=== PATIENT | female | born 1980 | race Caucasian/White ===

== ENCOUNTER 2016-04-07 09:03 | Inpatient (IN) | payer MEDICAID ==
[~2016-04-07] VITALS: Ht 162.6 cm; Wt 68.2 kg
[2016-04-07] MEDS ORDERED: SODIUM CHLORIDE 0.9% 1,000 ML IV ONE (09:27)
[2016-04-07 09:51] LABS: Basophils # (auto) 0 uL; Basophils % (auto) 0.2 % (0.0-2.0); Eosinophils # (auto) 0.1 uL; Eosinophils % (auto) 1.2 % (0.0-7.0); Hematocrit 47.3 % (36.0-46.0); Hemoglobin 15.8 g/dL (12.2-16.2); Lymphocytes # (auto) 0.8 uL; Mean Corpuscular Hemoglobin 29.1 pg (28.0-32.0); Mean Corpuscular Hgb Conc. 33.4 g/dL (32.0-36.0); Mean Corpuscular Volume 87.2 fL (80.0-100.0); Mean Platelet Volume 9.8 fL (7.4-10.4); Monocytes # (auto) 0.4 uL; Monocytes % (auto) 3.1 % (0.0-12.0); Neutrophils % (auto) 88.5 % (37.0-80.0); Platelet Count (auto) 345 10^3/uL (140-450); Red Cell Distribution Width 13.7 % (11.6-16.0); White Blood Cell 11.3 10^3/uL (4.4-10.8)
[2016-04-07 10:06] LABS: Albumin 3.6 g/dL (3.4-5.0); BUN/Creatinine Ratio 19.4; Calcium 8.6 mg/dL (8.5-10.1); Potassium 3.6 mmol/L (3.5-5.1)
[2016-04-07 10:09] LABS: Bilirubin, Total 1.2 mg/dL (0.2-1.0); Total Protein 7.3 g/dL (6.4-8.2)
[2016-04-07] MEDS ORDERED: ONDANSETRON HCL 4 MG/2 ML VIAL IV PRN (12:30)
[2016-04-07] MEDS ORDERED: TEMAZEPAM 15 MG CAP PO PRN (12:30)
[2016-04-07] MEDS ORDERED: cefTRIAXone 1GM/50ML D5W 50 ML IV ONE (12:30)
[2016-04-07] MEDS ORDERED: HYDROcodone-ACET 5/325MG TAB PO PRN (12:30)
[2016-04-07] MEDS ORDERED: MORPHINE SULF INJ 2 MG/ML SYRINGE 1ML IV PRN ×2 (12:30)
[2016-04-07] MEDS ORDERED: NITROGLYCERIN 0.4 MG SL TAB SL PRN (12:30)
[2016-04-07 12:55] LABS: Urine Bilirubin Negative (Negative); Urine Color Yellow (Yellow); Urine Glucose Normal (Normal); Urine Nitrite Negative (Negative); Urine RBC <1 /hpf (0 - 4); Urine Squamous Epithelial Cell FEW /hpf (<5); Urine Urobilinogen Normal (Negative); Urine pH 5.5 (5.0-8.0)
[2016-04-07] MEDS: SODIUM CHLORIDE 0.9% 1,000 ML IV SCH ×2 (13:00→20:19)
[2016-04-07 13:06] LABS: Urine Blood 1+ /uL (Negative); Urine Ketone 2+ (Negative)
[2016-04-07] MEDS: FAMOTIDINE 20 MG TAB PO SCH ×2 (13:09→22:06)
[2016-04-07] MEDS: metroNIDAZOLE 500MG/100ML 100 ML IV SCH ×2 (13:09→22:06)
[2016-04-07 16:45] VITALS: BP 120/72
[2016-04-07 22:00] VITALS: BP 126/77
[2016-04-08] MEDS ORDERED: ALPR0.5T PO (02:26)
[2016-04-08] MEDS ORDERED: ESCI10TA53 PO (02:26)
[2016-04-08] MEDS: ACETAMINOPHEN 325 MG TAB PO PRN ×3 (04:23→21:24)
[2016-04-08] MEDS: SODIUM CHLORIDE 0.9% 1,000 ML IV SCH ×3 (05:02→20:42)
[2016-04-08 05:20] LABS: Basophils # (auto) 0 uL; Basophils % (auto) 0.4 % (0.0-2.0); Eosinophils # (auto) 0.1 uL; Eosinophils % (auto) 1.8 % (0.0-7.0); Hematocrit 39.1 % (36.0-46.0); Lymphocytes # (auto) 2.2 uL; Lymphocytes % (auto) 36.6 % (10.0-50.0); Mean Corpuscular Hemoglobin 29.4 pg (28.0-32.0); Mean Corpuscular Hgb Conc. 33.2 g/dL (32.0-36.0); Mean Corpuscular Volume 88.6 fL (80.0-100.0); Mean Platelet Volume 9.5 fL (7.4-10.4); Monocytes # (auto) 0.5 uL; Monocytes % (auto) 8.4 % (0.0-12.0); Neutrophils # (auto) 3.2 uL; Neutrophils % (auto) 52.8 % (37.0-80.0); Platelet Count (auto) 274 10^3/uL (140-450); Red Cell Distribution Width 13.7 % (11.6-16.0)
[2016-04-08 05:30] VITALS: BP 108/73
[2016-04-08] MEDS: metroNIDAZOLE 500MG/100ML 100 ML IV SCH ×3 (05:33→21:30)
[2016-04-08 05:36] LABS: Albumin 2.8 g/dL (3.4-5.0); BUN/Creatinine Ratio 9.1; Bilirubin, Total 0.9 mg/dL (0.2-1.0); Calcium 7.7 mg/dL (8.5-10.1); Potassium 3.5 mmol/L (3.5-5.1); Total Protein 5.5 g/dL (6.4-8.2)
[2016-04-08 08:00] VITALS: BP 104/56
[2016-04-08] MEDS ORDERED: cefTRIAXone 1GM/50ML D5W 50 ML IV SCH (09:00)
[2016-04-08] MEDS ORDERED: MULTIPLE VITAMIN TAB PO SCH (10:00)
[2016-04-08] MEDS: FAMOTIDINE 20 MG TAB PO SCH ×2 (10:43→21:31)
[2016-04-08 13:00] VITALS: BP 109/66
[2016-04-08 17:08] VITALS: BP 98/68
[2016-04-08 22:00] VITALS: BP 135/96
[2016-04-09 05:30] VITALS: BP 101/66
[2016-04-09] MEDS: SODIUM CHLORIDE 0.9% 1,000 ML IV SCH (05:32)
[2016-04-09] MEDS: metroNIDAZOLE 500MG/100ML 100 ML IV SCH (05:32)
[2016-04-09] MEDS: ACETAMINOPHEN 325 MG TAB PO PRN (08:26)
[2016-04-09 09:00] VITALS: BP 109/72
[2016-04-09 09:14] VITALS: BP 109/72
== END 2016-04-09 09:50 | disposition home or self-care (01) | DRG 720 ==
LOC: EDUNIT# 09:03 → ER 09:13 → TELE 09:14 → TELE-E-ADS 17:06 → TELE-WESTW 18:33
PROVIDERS: ADMIT Internal Medicine; ATTEND Hospitalist
DX: A41.9 Sepsis, unspecified organism (principal); F32.9 Major depressive disorder, single episode, unspecified; F41.9 Anxiety disorder, unspecified; E86.0 Dehydration; K52.9 Noninfective gastroenteritis and colitis, unspecified; N18.2 Chronic kidney disease, stage 2 (mild); Z82.49 Family history of ischemic heart disease and other diseases of the circulatory system
CPT/HCPCS: 36415; 74176; 80053; 81001; 81025; 83690; 85025; 87040; 87045; 87493; 87899; 96361; 96365; J0696; J3490

== ENCOUNTER 2017-11-09 13:47 | Emergency (ER) | payer MEDICAID ==
[~2017-11-09] VITALS: Ht 165.1 cm; Wt 81.6 kg
[~2017-11-09 13:47] MED LIST: ALPR0.5T PO; ESCI10TA53 PO
[2017-11-09 15:00] LABS: Urine Bacteria NONE SEEN /hpf (None Seen); Urine Blood Negative /uL (Negative); Urine Specific Gravity 1.023 (1.001-1.035); Urine WBC <1 /hpf (0 - 5)
[2017-11-09 15:07] LABS: Basophils # (auto) 0.1 uL; Basophils % (auto) 0.5 % (0.0-2.0); Eosinophils # (auto) 0.2 uL; Hemoglobin 14.2 g/dL (12.2-16.2); Lymphocytes # (auto) 2.3 uL; Lymphocytes % (auto) 21.6 % (10.0-50.0); Mean Corpuscular Hemoglobin 30.5 pg (28.0-32.0); Mean Corpuscular Hgb Conc. 34.5 g/dL (32.0-36.0); Mean Corpuscular Volume 88.4 fL (80.0-100.0); Monocytes # (auto) 0.6 uL; Monocytes % (auto) 5.4 % (0.0-12.0); Neutrophils # (auto) 7.6 uL; Neutrophils % (auto) 70.5 % (37.0-80.0); Nucleated Red Blood Cells % 0.1 %; Platelet Count (auto) 280 10^3/uL (140-450); Red Blood Cells 4.64 10^6/uL (4.0-5.20); Red Cell Distribution Width 13.4 % (11.8-14.3); White Blood Cell 10.8 10^3/uL (4.4-10.8)
[2017-11-09 15:36] LABS: Alanine Aminotransferase 20 U/L (13-56); Albumin 3.5 g/dL (3.4-5.0); Alkaline Phosphatase 51 U/L (45-117); Anion Gap 8 (5-15); Aspartate Aminotransferase 13 U/L (15-37); BUN/Creatinine Ratio 20.7; Bilirubin, Total 0.9 mg/dL (0.2-1.0); Blood Urea Nitrogen 18 mg/dL (7-18); Calcium 8.2 mg/dL (8.5-10.1); Carbon Dioxide 23 mmol/L (21-32); Chloride 107 mmol/L (98-107); GFR African American 93 mL/min; GFR Non-African American 77 mL/min; Glucose 117 mg/dL (74-106); Magnesium 2.4 mg/dL (1.6-2.6); Potassium 3.5 mmol/L (3.5-5.1); Sodium 138 mmol/L (136-145); Total Protein 7.1 g/dL (6.4-8.2)
[2017-11-09 16:15] VITALS: BP 126/83
== END 2017-11-09 16:18 | disposition home or self-care (01) ==
LOC: ER 13:47 → EDBD 13:47 → ER 16:18
DX: I34.1 Nonrheumatic mitral (valve) prolapse (principal); F41.9 Anxiety disorder, unspecified
CPT/HCPCS: 36415; 71046; 80053; 81001; 81025; 83735; 84484; 85025; 93005

== ENCOUNTER 2018-01-08 12:25 | Emergency (ER) | payer MEDICAID ==
[~2018-01-08] VITALS: Ht 162.6 cm; Wt 81.6 kg
[2018-01-08] MEDS ORDERED: LORazepam 0.5 MG TAB PO ONE (13:30)
[2018-01-08 13:43] LABS: Basophils # (auto) 0.1 uL; Basophils % (auto) 0.8 % (0.0-2.0); Eosinophils # (auto) 0.2 uL; Eosinophils % (auto) 2.1 % (0.0-7.0); Hematocrit 41.6 % (36.0-46.0); Hemoglobin 14.4 g/dL (12.2-16.2); Lymphocytes # (auto) 2.9 uL; Lymphocytes % (auto) 31.9 % (10.0-50.0); Mean Corpuscular Hemoglobin 30.4 pg (28.0-32.0); Mean Corpuscular Hgb Conc. 34.5 g/dL (32.0-36.0); Monocytes # (auto) 0.6 uL; Monocytes % (auto) 6.3 % (0.0-12.0); Neutrophils # (auto) 5.3 uL; Neutrophils % (auto) 58.9 % (37.0-80.0); Nucleated Red Blood Cells % 0.1 %; Platelet Count (auto) 337 10^3/uL (140-450); Red Blood Cells 4.73 10^6/uL (4.0-5.20); Red Cell Distribution Width 13.7 % (11.8-14.3)
[2018-01-08 13:55] LABS: Alanine Aminotransferase 21 U/L (13-56); Albumin 3.6 g/dL (3.4-5.0); Anion Gap 8 (5-15); Aspartate Aminotransferase 10 U/L (15-37); BUN/Creatinine Ratio 13.5; Blood Urea Nitrogen 12 mg/dL (7-18); Calcium 8.4 mg/dL (8.5-10.1); Carbon Dioxide 23 mmol/L (21-32); Chloride 108 mmol/L (98-107); GFR African American 91 mL/min; GFR Non-African American 75 mL/min; Glucose 113 mg/dL (74-106); Potassium 3.4 mmol/L (3.5-5.1); Sodium 139 mmol/L (136-145)
[2018-01-08 14:07] LABS: Alkaline Phosphatase 54 U/L (45-117); Total Protein 7.2 g/dL (6.4-8.2)
[2018-01-08] MEDS ORDERED: POTASSIUM EFFERVESENT TAB 25 MEQ PO ONE (14:15)
[2018-01-08 14:28] LABS: Urine Bacteria NONE SEEN /hpf (None Seen); Urine Blood Negative /uL (Negative); Urine Specific Gravity 1.001 (1.001-1.035); Urine WBC <1 /hpf (0 - 5)
[2018-01-08 14:51] VITALS: BP 134/82
== END 2018-01-08 14:52 | disposition home or self-care (01) ==
LOC: ER 12:25
DX: F41.9 Anxiety disorder, unspecified (principal)
CPT/HCPCS: 36415; 80053; 81001; 81025; 84484; 85025; 93005

== ENCOUNTER 2024-06-07 16:22 | Inpatient (IN) | payer MEDICAID ==
[~2024-06-07] VITALS: Ht 162.6 cm; Wt 69.5 kg
[~2024-06-07 16:22] MED LIST changes: -ESCI10TA53 PO; +ESCI1TAB36 PO
--- NOTE | 2024-06-07 16:45 | ED.PDOC ---
History of Present Illness HPI Comments This is a 43-year-old female who comes in with chief complaint of total body pain since last night at approximately 8:00 a.m.. The patient states that she has a history of multiple sclerosis. She states that the pain has been worsening and so now she can not get out of bed. EN route, the patient experienced some nausea and some vomiting. The patient was no other complaints at this time. She denies any fever, chills or dysuria. Chief Complaint: Body Pain Time Seen by MD: 16:26 Primary Care Provider: unknown Reviewed Notes: Nurses Notes, Sprinkler Fitter Apprentice Notes, Medications, Allergies (No allergies to medications) Allergies: Coded Allergies: NO KNOWN ALLERGIES (Unverified , 11/26/15) Home Meds Reported Medications Escitalopram Oxalate (ESCITALOPRAM OXALATE) 10 Mg Tab, 10 MG PO DAILY, TAB 04/08/16 Alprazolam (Xanax) 0.5 Mg Tb, 0.5 MG PO BID 04/08/16 Information Source: Patient, Emergency Med Personnel Mode of Arrival: EMS Severity: Moderate Timing: Days Duration: Since onset Prehospital treatment: None Associated signs and symptoms Associated vomiting with generalized body pain Past Medical History PAST MEDICAL HISTORY: Anxiety Past Medical History (Other): Multiple sclerosis, mitral valve prolapse Surgical History: Denies all surgeries ROLL EXAMINER History: No Pertinent ROLL EXAMINER History Family History Family History: No family hx of Cancer, No family hx of DM, No family hx of Heart kaylee Social History Smoker: Non-Smoker Alcohol: Denies ETOH Use Drugs: Denies Drug Use Lives In: Home Constitutional: reports: weakness; denies: chills, diaphoresis, fatigue, fever, malaise, sweats, others EENTM: denies: blurred vision, double vision, ear bleeding, ear discharge, ear drainage, ear pain, ear ringing, eye pain, eye redness, hearing loss, mouth pain, mouth swelling, nasal discharge, nose bleeding, nose congestion, nose pain, photophobia, tearing, throat pain, throat swelling, voice changes, others Respiratory: denies: cough, hemoptysis, orthopnea, SOB at rest, shortness of b reath, SOB with excertion, stridor, wheezing, others Cardiovascular: denies: chest pain, dizzy spells, diaphoresis, Dyspnea on exertion, edema, irregular heart beat, left arm pain, lightheadedness, palpitations, PND, syncope, others Gastrointestinal: denies: abdomen distended, abdominal pain, blood streaked bowels, constipated, diarrhea, dysphagia, difficulty swallowing, hematemesis, melena, nausea, poor appetite, poor fluid intake, rectal bleeding, rectal pain, vomiting, others Genitourinary: denies: abnormal vagina bleeding, burning, dyspareunia, dysuria, flank pain, frequency, hematuria, incontinence, pain, , vagina discharge, urgency, others Neurological: denies: dizziness, fainting, headache, left sided numbness, left sided weakness, numbness, paresthesia, pre-existing deficit, right sided numbness, right sided weakness, seizure, speech problems, tingling, tremors, weakness, others Musculoskeletal: reports: others (Total body pain); denies: back pain, gout, joint pain, joint swelling, muscle pain, muscle stiffness, neck pain Integumetry: denies: bruises, change in color, change in hair/nails, dryness, laceration, lesions, lumps, rash, wounds, others Allergic/Immunocompromised: denies: Difficulty Healing, Frequent Infections, Hives, Itching, others Hematologic/Lymphatic: denies: anemia, blood clots, easy bleeding, easy bruising, swollen glands, others Endocrine: denies: excessive hunger, excessive sweating, excessive thirst, excessive urination, flushing, intolerance to cold, intolerance to heat, unexplained weight gain, unexplained weight loss, others Psychiatric: denies: anxiety, bipolar disorder, depression, hopeless, panic disorder, schizophrenia, sleepless, suicidal, others Physical Exam General Appearance: Moderate Distress HEENT: Normal ENT Inspection, Pharynx Normal, TMs Normal Neck: Full Range of Motion, Non-Tender, Normal, Normal Inspection Respiratory: Chest Non-Tender, Lungs Clear, No Accessory Muscle Use, No Respiratory Distress, Normal Breath Sounds Cardiovascular: No Edema, No JVD, No Murmur, No Gallop, Normal Peripheral Pulses, Regular Rate/Rhythm Breast Exam: Deferred Gastrointestinal: No Organomegaly, Non Tender, No Pulsatile Mass, Normal Bowel Sounds, Soft Genitalia: Deferred Pelvic: Deferred Rectal: Deferred Extremities: No calf tenderness, Normal capillary refill, No pedal edema Musculoskeletal : Apperance: Normal Neurologic: Alert, cabinet maker II-XII nml as Tested, Motor Weakness, Normal Affect, Normal Mood, No Sensory Deficits Cerebellar Function: Normal Reflexes: Normal Skin: Dry, Normal Color, Warm Lymphatic: No Adenopathy Was a procedure done? Was a procedure done?: No Differential Dx Considerations may include: Generalized weakness, electrolyte imbalance, multiple sclerosis X-Ray, Labs, Meds, VS Vital Signs Date Time Temp Pulse Resp B/P (MAP) Pulse Ox O2 Delivery O2 Flow Rate FiO2 06/07/24 17:28 118 18 100/78 06/07/24 17:18 Room Air* 0 21 06/07/24 16:25 98.8 112 20 116/81 (93) 99 Lab Test 06/07/24 16:43 06/07/24 16:42 Range/Units Sodium Level 132 L 136-145 mmol/L Potassium Level 3.8 3.5-5.1 mmol/L Chloride Level 102 98-107 mmol/L Carbon Dioxide Level 20 20-31 mmol/L Anion Gap 10 5-15 Blood Urea Nitrogen 8 L 9-23 mg/dL Creatinine 0.72 0.550-1.02 mg/dL Glomerular Filtration Rate Calc 105 >90 mL/min BUN/Creatinine Ratio 11.1 10.0-20.0 Serum Glucose 134 H 74-106 mg/dL Calcium Level 9.1 8.7-10.4 mg/dL White Blood Count 4.5 4.4-10.8 10^3/uL Red Blood Count 5.32 H 4.0-5.20 10^6/uL Hemoglobin 14.6 12.2-16.2 g/dL Hematocrit 43.3 36.0-46.0 % Mean Corpuscular Volume 81.5 80.0-100.0 fL Mean Corpuscular Hemoglobin 27.5 L 28.0-32.0 pg Mean Corpuscular Hemoglobin Concent 33.7 32.0-36.0 g/dL Red Cell Distribution Width 15.0 H 11.8-14.3 % Platelet Count 261 140-450 10^3/uL Mean Platelet Volume 9.4 6.9-10.8 fL Neutrophils (%) (Auto) 63.2 37.0-80.0 % Lymphocytes (%) (Auto) 27.5 10.0-50.0 % Monocytes (%) (Auto) 8.4 0.0-12.0 % Eosinophils (%) (Auto) 0.3 0.0-7.0 % Basophils (%) (Auto) 0.6 0.0-2.0 % Neutrophils # (Auto) 2.8 1.6-8.6 10 ^3/uL Lymphocytes # (Auto) 1.2 0.4-5.4 10 ^3/uL Monocytes # (Auto) 0.4 0-1.3 10 ^3/uL Eosinophils # (Auto) 0 0-0.8 10 ^3/uL Basophils # (Auto) 0 0-0.2 10 ^3/uL Nucleated Red Blood Cells 0.2 % Current Medications Medications (Trade) Dose Ordered Sig/Josiah Route Start Time Stop Time Status Last Admin Ondansetron HCl (Zofran) 4 mg ONCE ONCE IV 06/07/24 16:30 06/07/24 16:31 DC 06/07/24 17:27 Morphine Sulfate 4 mg ONCE ONCE IV 06/07/24 16:30 06/07/24 16:31 DC 06/07/24 17:28 Methylprednisolone Sodium Succinate (Solu Medrol) 125 mg ONCE ONCE IV 06/07/24 16:30 06/07/24 16:31 DC 06/07/24 17:28 Sodium Chloride 1,000 ml @ 1,000 mls/hr Q1H ONCE IV 06/07/24 17:30 06/07/24 18:29 06/07/24 17:28 IV Hep-Lock was established The patient was given Solu-Medrol 125 mg IV push The patient was also given Zofran 4 mg IV push The patient will be given morphine 4 mg IV push At this time, the patient was given normal saline as a bolus The patient's chemistry panel is within normal limits The patient's CBC is within normal limits The patient was being admitted at this time The patient understands and agrees with the management. Images Reviewed?: Images reviewed and evaluated by me Time of 1ST Reevaluation: 17:02 Reevaluation 1ST: Unchanged Patient Education/Counseling: Diagnosis, Treatment, Prognosis Family Education/Counseling: No Family Present Departure 1 Departure Time of Disposition: 18:09 Impression: Primary Impression: Intractable pain Additional Impression: Multiple sclerosis exacerbation Disposition: 09 ADMITTED INPATIENT Admit to: Med Surg Condition: Fair Critical Care Note Critical Care Time?: No Stability Stability form required: Yes Unstable for transfer: ED Physician Assesment (Clinical assesment) Heart Score Heart Score: Heart Score Response (Comments) Value History N/A 0 EKG N/A 0 Age N/A 0 Risk Factors N/A 0 Troponin N/A 0 Total 0 GIOVANNA UMANA MD Jun 07, 2024 16:45
[2024-06-07 17:11] LABS: Basophils # (auto) 0 10 ^3/uL (0-0.2); Basophils % (auto) 0.6 % (0.0-2.0); Eosinophils # (auto) 0 10 ^3/uL (0-0.8); Eosinophils % (auto) 0.3 % (0.0-7.0); Hematocrit 43.3 % (36.0-46.0); Hemoglobin 14.6 g/dL (12.2-16.2); Lymphocytes # (auto) 1.2 10 ^3/uL (0.4-5.4); Lymphocytes % (auto) 27.5 % (10.0-50.0); Mean Corpuscular Hemoglobin 27.5 pg (28.0-32.0); Mean Corpuscular Hgb Conc. 33.7 g/dL (32.0-36.0); Mean Corpuscular Volume 81.5 fL (80.0-100.0); Monocytes # (auto) 0.4 10 ^3/uL (0-1.3); Monocytes % (auto) 8.4 % (0.0-12.0); Neutrophils # (auto) 2.8 10 ^3/uL (1.6-8.6); Neutrophils % (auto) 63.2 % (37.0-80.0); Nucleated Red Blood Cells % 0.2 %; Platelet Count (auto) 261 10^3/uL (140-450); Red Blood Cells 5.32 10^6/uL (4.0-5.20); White Blood Cell 4.5 10^3/uL (4.4-10.8)
[2024-06-07 17:14] LABS: Anion Gap 10 (5-15); Carbon Dioxide 20 mmol/L (20-31); Chloride 102 mmol/L (98-107); Potassium 3.8 mmol/L (3.5-5.1); Sodium 132 mmol/L (136-145)
[2024-06-07 17:15] LABS: Calcium 9.1 mg/dL (8.7-10.4)
[2024-06-07 17:20] LABS: BUN/Creatinine Ratio 11.1 (10.0-20.0)
[2024-06-07 17:26] LABS: Blood Urea Nitrogen 8 mg/dL (9-23); Glucose 134 mg/dL (74-106)
[2024-06-07] MEDS: ONDANSETRON HCL 4 MG/2 ML VIAL IV ONE ×2 (17:27→21:57)
[2024-06-07] MEDS: MORPHINE SULFATE 4 MG/ML SYR/VIAL IV ONE ×2 (17:28→22:08)
[2024-06-07] MEDS: SODIUM CHLORIDE 0.9% 1,000 ML IV ONE (17:28)
[2024-06-07] MEDS: methylPREDNISolone SOD SUCC 125 MG/2 ML VL IV ONE (17:28)
[2024-06-07 18:25] LABS: Urine Bacteria None Seen /hpf (None Seen)
[2024-06-07 18:43] LABS: Urine Blood Negative /uL (Negative); Urine Clarity Clear (Clear); Urine Color Light-Yellow (Yellow); Urine Protein, UAD Negative (Negative); Urine Specific Gravity 1.009 (1.001-1.035); Urine Squamous Epithelial Cell FEW /hpf (<5); Urine Urobilinogen Normal (Negative); Urine WBC 1 /HPF (0-5); Urine pH 5.5 (5.0-9.0)
--- NOTE | 2024-06-07 22:50 | DVHHPRES ---
History of Present Illness Resident Creating Document: ZULEIMA REMY RESDIENT History of Present Illness This is a 43-year-old female with past medical history of multiple sclerosis (since 2021, per patient triggered with a COVID-19 vaccine booster), anxiety and mitral valve prolapse brought to the hospital due to generalized body pain since last night. She has multiple sclerosis since 2021 which has progressively worsened and had admitted multiple times due to MS flare-up. She was on Ofatumumab (20 mg subQ monthly) stopped on October 2023 and has been started IVIG on January 2024 (2 times per month, with last dose on 27 May 2024) due to MS progression. Since last night she got generalized body pain more prominent on lower back and left lower limb which was associated with bilateral legs cramp, tingling, and tiredness. Since 2021 the patient is legally blind and been bed bound since January 2024. She has been followed by neurologist Dr. Doreen Craig, and had planned for contrast MRI of the brain, lumbar and thoracic spine. PMHx: multiple sclerosis (since 2021, per patient triggered with a COVID-19 vaccine booster), anxiety and mitral valve prolapse PSHx: Not significant Family history: Father has Parkinson disease Social history: Has been bed-bound since January 2024 and using diaper. Living with the family at home, denies smoking or any other drug use. Home medication: Ativan and baclofen Allergic history: No known allergies Review of Systems Review of Systems General: Reports generalized weakness and body pain HEENT: Legally blind since 2021 Cardiovascular: Denies chest pain, palpitations, dyspnea on exertion, orthopnea, or claudication. Respiratory: No cough, and wheezing. Gastrointestinal: Denies nausea, vomiting, dysphagia, odynophagia, heartburn, abdominal pain, flatulence, bloating, diarrhea, constipation, change in stool, or blood in stool. Genitourinary: No dysuria, hematuria, discharge, frequency, urgency, nocturia, incontinence, and urinary retention. Endocrine: No heat or cold intolerance, polydipsia, polyuria, and polyphagia. Neurological: No dizziness, extremity weakness and numbness, tremors, gait disturbance, seizures, and memory impairment. Psychiatric: Denies depression, anxiety,or insomnia. Musculoskeletal: Reports lower back pain and bilateral lower limb comes with pain Skin: No rashes, itching, skin lesion, changes in hair, nail, skin texture and breast. Hematologic/Lymphatic: Denies easy bruising, bleeding tendencies, or lymph node enlargement. Allergies: Coded Allergies: NO KNOWN ALLERGIES (Unverified , 11/26/15) Exam Vital Signs Vital Signs Date Time Temp Pulse Resp B/P (MAP) Pulse Ox O2 Delivery O2 Flow Rate FiO2 06/07/24 22:08 111 20 109/72 06/07/24 19:25 Room Air* 0 21 06/07/24 19:00 97.4 98 97.4 Exam General Appearance: Alert, Oriented X3, Cooperative, in moderate distress due to pain HEENT: Atraumatic, PERRLA, EOMI, Mucous membrane moist/pink Respiratory: Clear to auscultation, Normal air movement Cardiovascular: Regular rate, Normal S1, Normal S2, No murmurs, no chest wall tenderness Abdominal: Normal bowel sounds, Soft, No tenderness, No hepatospenomegaly, No masses Extremities: Bilateral lower limb tenderness Skin: No rashes, No breakdown, No significant lesion Neuro: Patient is bed-bound due to pain, neurological examination could not performed due to severe pain Psych/Mental Status: Mental status NL, Mood NL Labs/Xrays Labs Test 06/07/24 18:00 06/07/24 16:43 06/07/24 16:42 Range/Units Urine Color Light-yellow Yellow Urine Clarity Clear Clear Urine pH 5.5 5.0-9.0 Urine Specific [place] 1.009 1.001-1.035 Urine Protein Negative Negative Urine Ketones Negative Negative Urine Blood Negative Negative /uL Urine Nitrite Negative Negative Urine Bilirubin Negative Negative Urine Urobilinogen Normal Negative mg/dL Urine Leukocyte Esterase Negative Negative /uL Urine RBC 1 0 - 4 /hpf Urine Microscopic WBC 1 0-5 /HPF Urine Squamous Epithelial Cells Few <5 /hpf Urine Bacteria None seen None Seen /hpf Urine Glucose Normal Normal mg/dL Sodium Level 132 L 136-145 mmol/L Potassium Level 3.8 3.5-5.1 mmol/L Chloride Level 102 98-107 mmol/L Carbon Dioxide Level 20 20-31 mmol/L Anion Gap 10 5-15 Blood Urea Nitrogen 8 L 9-23 mg/dL Creatinine 0.72 0.550-1.02 mg/dL Glomerular Filtration Rate Calc 105 >90 mL/min BUN/Creatinine Ratio 11.1 10.0-20.0 Serum Glucose 134 H 74-106 mg/dL Calcium Level 9.1 8.7-10.4 mg/dL White Blood Count 4.5 4.4-10.8 10^3/uL Red Blood Count 5.32 H 4.0-5.20 10^6/uL Hemoglobin 14.6 12.2-16.2 g/dL Hematocrit 43.3 36.0-46.0 % Mean Corpuscular Volume 81.5 80.0-100.0 fL Mean Corpuscular Hemoglobin 27.5 L 28.0-32.0 pg Mean Corpuscular Hemoglobin Concent 33.7 32.0-36.0 g/dL Red Cell Distribution Width 15.0 H 11.8-14.3 % Platelet Count 261 140-450 10^3/uL Mean Platelet Volume 9.4 6.9-10.8 fL Neutrophils (%) (Auto) 63.2 37.0-80.0 % Lymphocytes (%) (Auto) 27.5 10.0-50.0 % Monocytes (%) (Auto) 8.4 0.0-12.0 % Eosinophils (%) (Auto) 0.3 0.0-7.0 % Basophils (%) (Auto) 0.6 0.0-2.0 % Neutrophils # (Auto) 2.8 1.6-8.6 10 ^3/uL Lymphocytes # (Auto) 1.2 0.4-5.4 10 ^3/uL Monocytes # (Auto) 0.4 0-1.3 10 ^3/uL Eosinophils # (Auto) 0 0-0.8 10 ^3/uL Basophils # (Auto) 0 0-0.2 10 ^3/uL Nucleated Red Blood Cells 0.2 % Assessment/Plan Assessment/Plan Multiple sclerosis exacerbation Anxiety Consult neurology Pulse therapy with methylprednisolone, 1 g daily for 5 days Morphine Baclofen History of mitral valve prolapse Mild hyponatremia DIET: Regular diet DVT PROPHYLAXIS: Lovenox DISPOSITION: Med/surge Patient's status and paln discussed with the patient and the patient's mother at the bedside Case discussed with Dr. Callahan Plan discussed with: Patient, Other My Orders Orders - ZULEIMA REMY RESDIELLA Procedure Category Date Status Time Admit ADMIT 3/11/25 Transmitted 22:39 Stat Ekg For Chest NIECY 06/07/24 In Process Pain 22:39 Notify Md Of Changes NIECY 06/07/24 In Process From Base 22:39 Date of Service: Jun 07, 2024 Billing Provider: DERRICK CALLAHAN MD Common Visit Codes: [id number] INP/OBS CARE (HIGH) TONYOMARZULEIMA NICHOLAS RESDIENT Jun 07, 2024 22:50 DERRICK CALLAHAN MD Jun 08, 2024 17:41
[2024-06-07 23:21] LABS: Opiate Scree,Urine Neg (NEGATIVE)
[2024-06-07 23:22] LABS: Amphetamine Screen, Urine Neg (NEGATIVE); Barbiturate Scree,Urine Neg (NEGATIVE); Benzodiazephine Screen, Urine Neg (NEGATIVE); Cannabinoid Screen, Urine Neg (NEGATIVE); Cocaine Screen, Urine Neg (NEGATIVE); Phencyclidine Screen, Urine Neg (NEGATIVE)
[2024-06-07 23:38] LABS: Erythrocyte Sedimentation Rate 13 mm/hr (0-20)
[2024-06-07] MEDS: MORPHINE SULFATE INJ 2 MG/ml SYRG IV ONE (23:44)
[2024-06-07] MEDS: BACLOFEN 10 MG TAB PO ONE (23:44)
[2024-06-08] VITALS (8 sets, daily range): BP systolic 101–119; BP diastolic 59–72; PULSE 93–115; RESP 18–20; TEMP 97.5–98.3; O2SAT 96–99
[2024-06-08] MEDS: methylPREDNISolone SOD SUCC 1,000 MG in SODIUM CHL 0.9% 250 ML IV ONE (01:40)
[2024-06-08] MEDS: MORPHINE SULFATE INJ 2 MG/ml SYRG IV PRN (02:04)
[2024-06-08] MEDS ORDERED: BACL10TA PO (03:06)
[2024-06-08] MEDS ORDERED: PREG50CA PO (03:06)
[2024-06-08] MEDS ORDERED: LORA-1121 PO (03:06)
[2024-06-08] MEDS: BACLOFEN 10 MG TAB PO PRN (05:20)
[2024-06-08 06:41] LABS: INR 0.97 (0.9-1.15); Partial Thromboplastin Time 25.6 SEC (24.5-34.5); Prothrombin Time 10.3 sec (9.3-11.8)
[2024-06-08 06:53] LABS: Basophils # (auto) 0 10 ^3/uL (0-0.2); Basophils % (auto) 0.1 % (0.0-2.0); Eosinophils # (auto) 0 10 ^3/uL (0-0.8); Hematocrit 39.1 % (36.0-46.0); Hemoglobin 13.5 g/dL (12.2-16.2); Lymphocytes # (auto) 0.9 10 ^3/uL (0.4-5.4); Lymphocytes % (auto) 25.5 % (10.0-50.0); Mean Corpuscular Hemoglobin 28.2 pg (28.0-32.0); Mean Corpuscular Hgb Conc. 34.7 g/dL (32.0-36.0); Mean Corpuscular Volume 81.2 fL (80.0-100.0); Monocytes # (auto) 0.3 10 ^3/uL (0-1.3); Monocytes % (auto) 8.4 % (0.0-12.0); Neutrophils # (auto) 2.3 10 ^3/uL (1.6-8.6); Nucleated Red Blood Cells % 0.2 %; Platelet Count (auto) 253 10^3/uL (140-450); Red Blood Cells 4.81 10^6/uL (4.0-5.20); Red Cell Distribution Width 14.7 % (11.8-14.3); White Blood Cell 3.5 10^3/uL (4.4-10.8)
[2024-06-08 07:05] LABS: Alanine Aminotransferase 19 U/L (7-40); Alkaline Phosphatase 63 U/L (46-116); Anion Gap 9 (5-15); Aspartate Aminotransferase 27 U/L (13-40); BUN/Creatinine Ratio 12.5 (10.0-20.0); Calcium 9.5 mg/dL (8.7-10.4); Carbon Dioxide 22 mmol/L (20-31); Chloride 104 mmol/L (98-107); Potassium 4.3 mmol/L (3.5-5.1); Total Protein 7.2 g/dL (5.7-8.2)
[2024-06-08 07:06] LABS: Bilirubin, Total 0.8 mg/dL (0.2-1.0)
[2024-06-08 07:09] LABS: Blood Urea Nitrogen 8 mg/dL (9-23); Glucose 114 mg/dL (74-106); Sodium 135 mmol/L (136-145)
[2024-06-08] MEDS: ACETAMINOPHEN 325 MG TAB PO PRN (08:38)
[2024-06-08] MEDS: methylPREDNISolone SOD SUCC 1,000 MG in SODIUM CHL 0.9% 250 ML IV SCH (10:32)
--- NOTE | 2024-06-08 12:08 | DVHPN2 ---
Progress Note Date Seen: Jun 08, 2024 Medical Necessity Reason Pt with a Central, PICC or Fol: No Subjective Patient reports: No new complaints Review of Systems: HEENT:Normal, CVS:Normal, RESPIRATORY:Normal, GI:Normal, :Normal, MSK:Normal, NEURO:Normal Objective vital signs Vital Sign Date Time Temp Pulse Resp B/P (MAP) Pulse Ox O2 Delivery O2 Flow Rate FiO2 06/08/24 09:00 98.1 93 18 101/72 (82) 99 98.1 06/08/24 01:47 Room Air* 0 21 Total Intake and Output 06/07/24 06/07/24 06/08/24 15:00 23:00 07:00 Intake Total 1000 ml 200 ml Output Total 1700 ml Balance 1000 ml -1500 ml medications Current Medications Medications Dose Ordered Sig/Josiah Route Start Time Stop Time Status Last Admin Dose Admin Morphine Sulfate 1 mg Q4HP PRN IV 06/07/24 22:45 06/08/24 02:04 1 MG Baclofen 10 mg Q8HP PRN PO 06/07/24 22:45 06/08/24 05:20 10 MG Acetaminophen 650 mg Q4HP PRN PO 06/07/24 22:45 06/08/24 08:38 650 MG Methylprednisolone Sodium Succinate 1000 mg/Sodium Chloride 250 ml @ 300 mls/hr DAILY IV 06/09/24 10:00 06/08/24 10:32 300 MLS/HR Examination: GENERAL:Normal, HEENT:Normal, NECK:Normal, LUNGS:Normal, CVS:Normal, ABDOMEN:Normal, MSK:Normal, SKIN:Normal, NEURO:Normal, NEURO:Abnormal (muscle spasms), :Normal laboratory and microbiology Laboratory Tests 06/08/24 05:56 Test 06/08/24 05:56 Range/Units Serum Glucose 114 H 74-106 mg/dL Problem List/Assessment/Plan Problem List/Assessment/Plan #! Multiple sclerosis with flare up/progression; on iv steroids, dw with dr Mckeon #2 mvp Plan discussed with: Patient, Other (mother) Date of Service: Jun 08, 2024 Billing Provider: ALEXANDER LIU MD Common Visit Codes: [id number] INP/OBS CARE(HIGH) ALEXANDER LIU MD Jun 08, 2024 12:08
--- NOTE | 2024-06-08 15:11 | DVHINCON2 ---
Date of service: Jun 08, [address] Rodriguez Reason for Consultation MS exacerbation History of Present Illness Ms. Alamo is a 43 years old right-handed female with a history of anxiety, mitral valve prolapse, multiple sclerosis, the patient was came to the hospital on 06/07/2024 with a chief company of back pain. At that time, she was alert and fully oriented, she provided the following history She was found to have multiple sclerosis in 2021 with her last exacerbation in 01/2024. In the morning on 06/07/2024, she woke up with intense pain in her whole body below the low chest, weakness in the extremities in the she could not move them at all, she does not know if she can control her bowel movement, but she was if he can control the bladder She was sees a MS specialist in the [facility], she was on a disease modifying agent, Kesimpta. She has seen a MS specialist in the [facility] and she is transferring there for a research protocol Urinalysis, 06/07/2024: WBC: 1, urine leukocyte esterase, negative UDS, 06/07/2024: Negative CBC, 06/08/24: Unremarkable ESR, 06/07/2024: 13 CMP, 06/08/2024: Unremarkable Vitamin D, 06/08/2024, 34.5 Past Medical History Anxiety, mitral valve prolapse, multiple sclerosis Past Surgical History No major surgeries Family History: FH: Parkinson's disease G8 FATHER Family history: Cardiovascular disease (mitral valve prolapse) Family History Heart disease, Parkinson's disease Social History She was not tobacco smoke, she denies a history of alcohol or recreational substance abuse Allergies: Coded Allergies: NO KNOWN ALLERGIES (Unverified , 11/26/15) Home Meds Reported Medications Lorazepam (ATIVAN TABLET) 0.5 Mg Tb, 0.5 TAB PO DAILY PRN for ANXIETY, #30 TAB 06/08/24 Pregabalin (Lyrica) 50 Mg Cap, 1 CAP PO BID, #60 CAP 06/08/24 Baclofen (Baclofen) 10 Mg Tab, 25 MG PO Q8HP PRN for FOR MUSCLE SPASM for 30 Days, MG 06/08/24 Escitalopram Oxalate (ESCITALOPRAM OXALATE) 10 Mg Tab, 10 MG PO DAILY, TAB 04/08/16 Alprazolam (Xanax) 0.5 Mg Tb, 0.5 MG PO BID 04/08/16 Current Medications Current Medications Medications (Trade) Dose Ordered Sig/Josiah Route PRN Reason Start Time Stop Time Status Last Admin Morphine Sulfate 1 mg Q4HP PRN IV SEVERE PAIN (7-10 PAIN SCALE) 06/07/24 22:45 06/08/24 02:04 Baclofen (Liorisal Tablet) 10 mg Q8HP PRN PO FOR MUSCLE SPASM 06/07/24 22:45 06/08/24 05:20 Acetaminophen (Tylenol Tablet) 650 mg Q4HP PRN PO MILD PAIN (1-3 PAIN SCALE) 06/07/24 22:45 06/08/24 08:38 Methylprednisolone Sodium Succinate 1000 mg/Sodium Chloride 250 ml @ 300 mls/hr DAILY IV 06/09/24 10:00 06/08/24 10:32 Sodium Chloride 1,000 ml @ 75 mls/hr [id number] IV 06/08/24 12:15 Lorazepam (Ativan Inj) 1 mg Q8HP PRN IV ANXIETY 06/08/24 15:00 Review of Systems As above, the other systems are negative Vital Signs Vital Signs Date Time Temp Pulse Resp B/P (MAP) Pulse Ox O2 Delivery O2 Flow Rate FiO2 06/08/24 13:00 98.1 99 20 102/59 (73) 96 98.1 06/08/24 01:47 Room Air* 0 21 Physical Exam GENERAL EXAM: General: the patient is well developed and nourished. No acute distress. HEENT: Normocephalic, neck is supple, no carotid bruits. No mass. e RESPIRATORY: Normal respiratory effort with symmetrical lung expansion. Lungs clear to auscultation. CARDIOVASCULAR: Regular rate and rhythm with no murmurs. S1, S2. ABDOMEN: Soft, nontender, normal bowel sound MUSCULOSKELETAL EXAM: Bad tenderness to palpation in the low thoracic spine NEUROLOGICAL: MENTAL STATUS: Awake and alert. Oriented to person, place, time and general circumstances. Able to give personal history. She looks under a lot of stress SPEECH, LANGUAGE, HIGHER CORTICAL FUNCTION: no aphasia or dysathria. CRANIAL NERVES: #2: Intact visual simons to confrontation. The optic discs were sharp #3,4,6: Pupils are equal, round and reactive. EOMs full and conjugate. No nystagmus. #5: Facial sensation intact in all three divisions bilaterally. Mandibular strength intact. #7: Facial muscles symmetrical and strength intact. #8: Hearing grossly normal to voice. #9,10: Uvula and soft palate rise in the midline. Swallow and voice are normal. #11: Trapezius and sternomastoid strength intact bilaterally. #12: Tongue midline. No fasciculations or atrophy. SENSATION: Diminished sensation to touch and pinprick below bilateral T6-T7 dermatomes MOTOR: Normal tone in the upper and lower extremity. Normal muscle bulk. No fasciculations. No abnormal movements or posturing. Muscle strength of the major groups in the upper extremities is 4/5 without drift. Muscle strength of the major groups in the lower extremities is 0-1/5. REFLEXES: Deep tendon reflexes are symmetrical. No pathological reflexes. CEREBELLAR/COORDINATION: Finger to nose and heel to [place] are normal bilaterally. GAIT/STATION: deferred. Labs/Diagnostic Data Labs Test 06/08/24 05:56 06/07/24 18:00 06/07/24 16:43 Range/Units White Blood Count 3.5 L 4.4-10.8 10^3/uL Red Blood Count 4.81 4.0-5.20 10^6/uL Hemoglobin 13.5 12.2-16.2 g/dL Hematocrit 39.1 36.0-46.0 % Mean Corpuscular Volume 81.2 80.0-100.0 fL Mean Corpuscular Hemoglobin 28.2 28.0-32.0 pg Mean Corpuscular Hemoglobin Concent 34.7 32.0-36.0 g/dL Red Cell Distribution Width 14.7 H 11.8-14.3 % Platelet Count 253 140-450 10^3/uL Mean Platelet Volume 9.3 6.9-10.8 fL Neutrophils (%) (Auto) 66.0 37.0-80.0 % Lymphocytes (%) (Auto) 25.5 10.0-50.0 % Monocytes (%) (Auto) 8.4 0.0-12.0 % Eosinophils (%) (Auto) 0.0 0.0-7.0 % Basophils (%) (Auto) 0.1 0.0-2.0 % Neutrophils # (Auto) 2.3 1.6-8.6 10 ^3/uL Lymphocytes # (Auto) 0.9 0.4-5.4 10 ^3/uL Monocytes # (Auto) 0.3 0-1.3 10 ^3/uL Eosinophils # (Auto) 0 0-0.8 10 ^3/uL Basophils # (Auto) 0 0-0.2 10 ^3/uL Nucleated Red Blood Cells 0.2 % Prothrombin Time 10.3 9.3-11.8 sec Prothrombin Time INR 0.97 0.9-1.15 Activated Partial Thromboplast Time 25.6 24.5-34.5 SEC Sodium Level 135 L 136-145 mmol/L Potassium Level 4.3 3.5-5.1 mmol/L Chloride Level 104 98-107 mmol/L Carbon Dioxide Level 22 20-31 mmol/L Anion Gap 9 5-15 Blood Urea Nitrogen 8 L 9-23 mg/dL Creatinine 0.64 0.550-1.02 mg/dL Glomerular Filtration Rate Calc 111 >90 mL/min BUN/Creatinine Ratio 12.5 10.0-20.0 Serum Glucose 114 H 74-106 mg/dL Calcium Level 9.5 8.7-10.4 mg/dL Total Bilirubin 0.8 0.2-1.0 mg/dL Aspartate Amino Transferase (AST) 27 13-40 U/L Alanine Aminotransferase (ALT) 19 7-40 U/L Alkaline Phosphatase 63 46-116 U/L Total Protein 7.2 5.7-8.2 g/dL Albumin 4.0 3.2-4.8 g/dL Vitamin D 25-Hydroxy 34.5 30.0-100 ng/mL Urine Color Light-yellow Yellow Urine Clarity Clear Clear Urine pH 5.5 5.0-9.0 Urine Specific [place] 1.009 1.001-1.035 Urine Protein Negative Negative Urine Ketones Negative Negative Urine Blood Negative Negative /uL Urine Nitrite Negative Negative Urine Bilirubin Negative Negative Urine Urobilinogen Normal Negative mg/dL Urine Leukocyte Esterase Negative Negative /uL Urine RBC 1 0 - 4 /hpf Urine Microscopic WBC 1 0-5 /HPF Urine Squamous Epithelial Cells Few <5 /hpf Urine Bacteria None seen None Seen /hpf Urine Glucose Normal Normal mg/dL Urine Opiates Screen Neg NEGATIVE Urine Fentanyl Screen Neg NEGATIVE Urine Barbiturates Screen Neg NEGATIVE Urine Phencyclidine Screen Neg NEGATIVE Urine Amphetamines Screen Neg NEGATIVE Urine Benzodiazepines Screen Neg NEGATIVE Urine Cocaine Screen Neg NEGATIVE Urine Cannabinoids Screen Neg NEGATIVE Erythrocyte Sedimentation Rate 13 0-20 mm/hr C-Reactive Protein High Sensitivity 0.13 <1.0 mg/dL Assessment Acute body pain, paraplegia, MS exacerbation Transverse myelitis Plan/Recommendation Monitoring Supportive treatment Telemetry Chest x-ray MRI brain with and without contrast MRI C-spine with and without contrast MRI T-spine with and without contrast Solu-Medrol 1000 mg IV daily for total five days Baclofen 10 mg Q 8 hours Ativan for anxiety Morphine for pain control GI prophylaxis DVT prophylaxis Transferred to [facility] Plan discussed with: Patient, Other YAZMIN BIRD MD Jun 08, 2024 15:11
[2024-06-08] MEDS ORDERED: GADOTERATE MEG 10 MMOL/20ml INJ (0.5MMOL/ml) IV ONE (15:36)
[2024-06-08] MEDS: ENOXAPARIN SOD 40 MG/0.4 ML SYRINGE SC ONE (15:45)
[2024-06-08] MEDS: LORazepam 2MG/ML-1ML VIAL IV PRN (16:36)
--- NOTE | 2024-06-08 17:09 | DVH ---
EXAM: XY CHEST PORTABLE HISTORY: Infiltrates COMPARISON: None TECHNIQUE: Portable upright AP view of the chest was performed. FINDINGS: No pneumothorax, consolidative infiltrates, or pulmonary edema. The heart is not enlarged. There is thoracic levoscoliosis. IMPRESSION: No acute intrathoracic process.
[2024-06-08] MEDS: PANTOPRAZOLE 40 MG TAB PO ONE (18:49)
[2024-06-08] MEDS: SODIUM CHLORIDE 0.9% 1,000 ML IV SCH (18:50)
[2024-06-09] VITALS (8 sets, daily range): BP systolic 104–117; BP diastolic 64–71; PULSE 93–98; RESP 18–20; TEMP 97.5–98.6; O2SAT 93–97
[2024-06-09] MEDS: PANTOPRAZOLE 40 MG TAB PO SCH (06:01)
[2024-06-09] MEDS: ENOXAPARIN SOD 40 MG/0.4 ML SYRINGE SC SCH (10:00)
--- NOTE | 2024-06-09 15:00 | DVHDS2 ---
Discharge Summary Date of Admission Jun 07, 2024 at 22:39 Date of Discharge: Jun 09, 2024 Labs/Diagnostic Data: Laboratory Results Test 06/08/24 05:56 06/07/24 18:00 06/07/24 16:43 White Blood Count 3.5 10^3/uL (4.4-10.8) Red Blood Count 4.81 10^6/uL (4.0-5.20) Hemoglobin 13.5 g/dL (12.2-16.2) Hematocrit 39.1 % (36.0-46.0) Mean Corpuscular Volume 81.2 fL (80.0-100.0) Mean Corpuscular Hemoglobin 28.2 pg (28.0-32.0) Mean Corpuscular Hemoglobin Concent 34.7 g/dL (32.0-36.0) Red Cell Distribution Width 14.7 % (11.8-14.3) Platelet Count 253 10^3/uL (140-450) Mean Platelet Volume 9.3 fL (6.9-10.8) Neutrophils (%) (Auto) 66.0 % (37.0-80.0) Lymphocytes (%) (Auto) 25.5 % (10.0-50.0) Monocytes (%) (Auto) 8.4 % (0.0-12.0) Eosinophils (%) (Auto) 0.0 % (0.0-7.0) Basophils (%) (Auto) 0.1 % (0.0-2.0) Neutrophils # (Auto) 2.3 10 ^3/uL (1.6-8.6) Lymphocytes # (Auto) 0.9 10 ^3/uL (0.4-5.4) Monocytes # (Auto) 0.3 10 ^3/uL (0-1.3) Eosinophils # (Auto) 0 10 ^3/uL (0-0.8) Basophils # (Auto) 0 10 ^3/uL (0-0.2) Nucleated Red Blood Cells 0.2 % Prothrombin Time 10.3 sec (9.3-11.8) Prothrombin Time INR 0.97 (0.9-1.15) Activated Partial Thromboplast Time 25.6 SEC (24.5-34.5) Sodium Level 135 mmol/L (136-145) Potassium Level 4.3 mmol/L (3.5-5.1) Chloride Level 104 mmol/L (98-107) Carbon Dioxide Level 22 mmol/L (20-31) Anion Gap 9 (5-15) Blood Urea Nitrogen 8 mg/dL (9-23) Creatinine 0.64 mg/dL (0.550-1.02) Glomerular Filtration Rate Calc 111 mL/min (>90) BUN/Creatinine Ratio 12.5 (10.0-20.0) Serum Glucose 114 mg/dL (74-106) Calcium Level 9.5 mg/dL (8.7-10.4) Total Bilirubin 0.8 mg/dL (0.2-1.0) Aspartate Amino Transferase (AST) 27 U/L (13-40) Alanine Aminotransferase (ALT) 19 U/L (7-40) Alkaline Phosphatase 63 U/L (46-116) Total Protein 7.2 g/dL (5.7-8.2) Albumin 4.0 g/dL (3.2-4.8) Vitamin D 25-Hydroxy 34.5 ng/mL (30.0-100) Urine Color Light-yellow (Yellow) Urine Clarity Clear (Clear) Urine pH 5.5 (5.0-9.0) Urine Specific [place] 1.009 (1.001-1.035) Urine Protein Negative (Negative) Urine Ketones Negative (Negative) Urine Blood Negative /uL (Negative) Urine Nitrite Negative (Negative) Urine Bilirubin Negative (Negative) Urine Urobilinogen Normal mg/dL (Negative) Urine Leukocyte Esterase Negative /uL (Negative) Urine RBC 1 /hpf (0 - 4) Urine Microscopic WBC 1 /HPF (0-5) Urine Squamous Epithelial Cells Few /hpf (<5) Urine Bacteria None seen /hpf (None Seen) Urine Glucose Normal mg/dL (Normal) Urine Opiates Screen Neg (NEGATIVE) Urine Fentanyl Screen Neg (NEGATIVE) Urine Barbiturates Screen Neg (NEGATIVE) Urine Phencyclidine Screen Neg (NEGATIVE) Urine Amphetamines Screen Neg (NEGATIVE) Urine Benzodiazepines Screen Neg (NEGATIVE) Urine Cocaine Screen Neg (NEGATIVE) Urine Cannabinoids Screen Neg (NEGATIVE) Erythrocyte Sedimentation Rate 13 mm/hr (0-20) C-Reactive Protein High Sensitivity 0.13 mg/dL (<1.0) Other Laboratory Tests 06/08/24 05:56 Brief Hx & Hospital Course: see dictated note Condition at Discharge: Fair Final Diagnosis/Problems List multiple sclerosis Discharge Disposition: Acute Care Facility Discharge Instruct/Medications Diet: Regular Activity: No Restrictions, As Tolerated Follow Up/Referral: fu with neurology Medications: per may Discharge Statement: "Patient was advised to return to the ER or call 911 if any headaches, dizziness, shortness of breath, chest pain, abdominal pain, bleeding, fevers, or worsening of medical condition. Patient was counseled about treatment plan, medications, possible side effects, patientverbalized understanding. All questions were answered to the best of my ability. This discharge took greater then 30 minutes in planning, reviewing documentation, counseling the patient, and discussing with other team members." ASSESSMENT ASSESSMENT Assessment multiple sclerosis Date of Service: Jun 09, 2024 Billing Provider: ALEXANDER LIU MD Common Visit Codes: [id number]/OBS DISCH DAY >30min ALEXANDER LIU MD Jun 09, 2024 15:00
--- NOTE | 2024-06-09 15:30 | DVHDS ---
DATE OF DISCHARGE: 06/09/2024 DATE OF TRANSFER: 06/09/2024 HISTORY OF PRESENT ILLNESS: The patient is a 43-year-old lady with known history of multiple sclerosis, who came in with worsening weakness and generalized body pain. The patient also has a history of mitral valve prolapse. HOSPITAL COURSE: As per the patient and the patient's mother, she was to be enrolled in a research protocol at [facility]. The patient was seen in Neurology consult by Dr. Mckeno. The patient was started on intravenous methylprednisolone 1 gram daily. The patient will now be transferred to [facility] once bed is available. FINAL DIAGNOSES: Therefore, * Multiple sclerosis with exacerbation. * Generalized body pain. * Questionable transverse myelitis. * Mitral valve prolapse. Time spent in discharge planning and review of plan with the patient, nursing and Neurology was 39 minutes. MD LEN Hatfield/EPIFANIO TID: [id number] RECEIPT: [id number]
[2024-06-09] MEDS: LORazepam 2MG/ML-1ML VIAL IV PRN (15:35)
--- NOTE | 2024-06-09 17:50 | DVH ---
PROCEDURE: MRI BRAIN HEAD WO W CONTRAST INDICATION: MS EXAM DATE: 06/09/2024 03:48 PM COMPARISON: None TECHNIQUE: MRI of the brain with and without 20 cc clariscan intravenous contrast. FINDINGS: Diffusion weighted images of the brain demonstrate no evidence of acute infarction. There is no evidence of acute intracranial hemorrhage, extra-axial collection, mass effect, midline s hift, herniation or hydrocephalus. The ventricles, sulci and cisterns appear age appropriate. Mild white matter disease mostly in the right posterior parietal and occipital white matter. No abnor mal enhancement. There are no signal abnormalities on the susceptibility weighted sequences. The major vascular flow voids are present. The visualized paranasal sinuses and mastoid air cells are clear. The surrounding soft tissues and o sseous structures are unremarkable. IMPRESSION: 1. No evidence of acute infarction, intracranial hemorrhage, mass effect or hydrocephalus. Mild white matter disease consistent with given history of demyelinating disease. No abnormal enhancement or re stricted diffusion to suggest active demyelination. HS:Y
--- NOTE | 2024-06-09 17:58 | DVH ---
PROCEDURE: MRI CERVICAL WITH CONTRAST INDICATION: MS EXAM DATE: 06/09/2024 04:04 PM COMPARISON: None TECHNIQUE: MRI cervical spine with and without 20 cc clariscan intravenous contrast. FINDINGS: The cervical alignment is intact. The vertebral body heights and marrow signal are within normal olivera its. The visualized posterior fossa and craniocervical junction are intact. There is patchy abnorma l signal throughout the cervical cord most focal to the right at C4-5. No abnormal enhancement. The re is no prevertebral soft tissue swelling. The visualized paraspinal soft tissues are otherwise unr emarkable. The following axial levels are detailed below: C2-C3: Unremarkable. C3-C4: Unremarkable. C4-C5: Mild posterior disc bulge. No significant central canal or neural foraminal stenosis. C5-C6: Mild posterior disc bulge. No significant central canal or neural foraminal stenosis. C6-C7: Mild posterior disc osteophyte complex complicated by facet arthropathy associated with mild left neural foraminal stenosis. No significant central canal stenosis. C7-T1: Unremarkable. IMPRESSION: 1. Mild degenerative disease. No significant central canal stenosis. Mild left neural foraminal sten osis C6-7. 2. Patchy abnormal cord signal throughout the cervical spine consistent with given history of demyeli nating disease. Cord signal abnormality is most focal to the right at C4-5. No abnormal enhancement to suggest active demyelination. HS:Y
--- NOTE | 2024-06-09 18:01 | DVH ---
PROCEDURE: MRI THORACIC SPINE WO W INDICATION: MS Exam Date: 06/09/2024 04:19 PM COMPARISON: None TECHNIQUE: MRI thoracic spine without intravenous contrast. FINDINGS: The thoracic alignment is intact. The vertebral body heights are intact. The marrow signal is withi n normal limits. No focal cord signal abnormality identified. No abnormal enhancement. There is no significant posterior disc disease, central canal or neural foraminal narrowing. The visualized para spinal soft tissues are otherwise unremarkable. IMPRESSION: 1. No significant posterior disc disease, central canal or neural foraminal narrowing. 2. No focal cord signal abnormality. No abnormal enhancement. HS:Y
--- NOTE | 2024-06-09 21:29 | DVHPN2 ---
Progress Note - Dictate Date Seen: Jun 09, 2024 Medical Necessity Reason Pt with a Central, PICC or Fol: No Subjective MsChanning Alamo is a 43 years old right-handed female with a history of anxiety, mitral valve prolapse, multiple sclerosis, the patient was came to the hospital on 06/07/2024 with a chief company of back pain. I have seen and examined the patient, I have discussed with her nurse, and Dr. Ibarra. She was doing much better today, the back pain has had improvement, she was able to move the legs more than before She was had no bowel movement yet She was may accept by the [facility], transfer pending bed availability Urinalysis, 06/07/2024: WBC: 1, urine leukocyte esterase, negative UDS, 06/07/2024: Negative CBC, 06/08/24: Unremarkable ESR, 06/07/2024: 13 CMP, 06/08/2024: Unremarkable Vitamin D, 06/08/2024, 34.5 Chest x-ray, 06/08/2024: No acute intrathoracic process MRI head, 06/09/2024: No evidence of acute infarction, intracranial hemorrhage, mass effect or hydrocephalus. Mild white matter disease consistent with given history of demyelinating disease. No abnormal enhancement or restricted diffusion to suggest active demyelination MRI C-spine, 06/26/2024: . Mild degenerative disease. No significant central canal stenosis. Mild left neural foraminal stenosis C6-7. 2. Patchy abnormal cord signal throughout the cervical spine consistent with given history of demyelinating disease. Cord signal abnormality is most focal to the right at C4-5. No abnormal enhancement to suggest active demyelination MRI T-spine, 06/26/2024: 1. No significant posterior disc disease, central canal or neural foraminal narrowing. 2. No focal cord signal abnormality. No abnormal enhancement. vital signs Vital Sign Date Time Temp Pulse Resp B/P (MAP) Pulse Ox O2 Delivery O2 Flow Rate FiO2 06/09/24 20:00 98 18 95 Room Air* 0 21 06/09/24 17:30 97.9 113/69 (84) 97.9 Total Intake and Output 06/08/24 06/08/24 06/09/24 15:00 23:00 07:00 Intake Total 950 ml 350 ml Output Total 1200 ml 500 ml Balance -250 ml -150 ml medications Current Medications Medications Dose Ordered Sig/Josiah Route Start Time Stop Time Status Last Admin Dose Admin Morphine Sulfate 1 mg Q4HP PRN IV 06/07/24 22:45 06/09/24 09:11 1 MG Baclofen 10 mg Q8HP PRN PO 06/07/24 22:45 06/09/24 15:35 10 MG Acetaminophen 650 mg Q4HP PRN PO 06/07/24 22:45 06/08/24 08:38 650 MG Methylprednisolone Sodium Succinate 1000 mg/Sodium Chloride 250 ml @ 300 mls/hr DAILY IV 06/09/24 10:00 06/09/24 09:14 300 MLS/HR Sodium Chloride 1,000 ml @ 75 mls/hr [id number] IV 06/08/24 12:15 06/09/24 02:39 75 MLS/HR Lorazepam 1 mg Q8HP PRN IV 06/08/24 15:00 06/09/24 01:48 1 MG Enoxaparin Sodium 40 mg DAILY SC 06/09/24 10:00 Pantoprazole Sodium 40 mg DAILY@0600 PO 06/09/24 06:00 06/09/24 06:01 40 MG Lorazepam 1 mg ONCE PRN IV 06/08/24 15:45 06/09/24 15:35 1 MG objective General: the patient is well developed and nourished. No acute distress. MUSCULOSKELETAL EXAM: Bad tenderness to palpation in the low thoracic spine MENTAL STATUS: Subjective SPEECH, LANGUAGE, HIGHER CORTICAL FUNCTION: no aphasia or dysathria. CRANIAL NERVES: Pupils are equal, round and reactive. EOMs full and conjugate. No nystagmus. Facial sensation intact in all three divisions bilaterally. Mandibular strength intact. Facial muscles symmetrical and strength intact. SENSATION: Diminished sensation to touch and pinprick below bilateral T6-T7 dermatomes MOTOR: Normal tone in the upper and lower extremity. Normal muscle bulk. No fasciculations. No abnormal movements or posturing. Muscle strength of the major groups in the upper extremities is 4/5 without drift. Muscle strength of the major groups in the lower extremities is 2-3/5. REFLEXES: Deep tendon reflexes are symmetrical. No pathological reflexes. CEREBELLAR/COORDINATION: Finger to nose and heel to [place] are normal bilaterally. GAIT/STATION: deferred laboratory and microbiology Laboratory Tests 06/08/24 05:56 Test 06/08/24 05:56 Range/Units Serum Glucose 114 H 74-106 mg/dL Problem List Acute body pain, paraplegia, MS exacerbation Transverse myelitis Assessment/Plan Monitoring Supportive treatment Telemetry Solu-Medrol 1000 mg IV daily for total five days Baclofen 10 mg Q 8 hours Ativan for anxiety Morphine for pain control GI prophylaxis DVT prophylaxis Transferred to [facility] This medical document was created using an electronic medical record system with [employer] dictation system. Although this document has been carefully reviewed, there may still be some phonetic and typographical errors. These areas are purely typographical due to imperfections of the software programs, and do not reflect any compromise in the patient's medical care. Prognosis poor Plan discussed with: Patient, Other YAZMIN BIRD MD Jun 09, 2024 21:29
[2024-06-10 01:00] VITALS: BP 105/70; PULSE 69; RESP 18; TEMP 97.8; O2SAT 98
[2024-06-10 05:00] VITALS: BP 109/68; PULSE 94; RESP 19; TEMP 97.4; O2SAT 100
[2024-06-10 08:00] VITALS: PULSE 95; RESP 16; O2SAT 96
[2024-06-10 09:00] VITALS: BP 104/64; PULSE 95; RESP 16; TEMP 97.8; O2SAT 96
[2024-06-10 09:36] VITALS: BP 104/64; PULSE 95; RESP 16; TEMP 97.8; O2SAT 96
[2024-06-10 10:31] VITALS: BP 104/64; PULSE 95; RESP 16
--- NOTE | 2024-06-10 17:00 | DVHPN2 ---
Subjective Update 06/10- covering today for primary (Tanisha SPRING). patient remains at stable for discharge for MS exacerbation. Continuing treatment with steroids. Reviewed: H&P Changes from previous H/P or p: No Changes General: Per HPI Objective Vitals Vital Signs Date Time Temp Pulse Resp B/P (MAP) Pulse Ox O2 Delivery O2 Flow Rate FiO2 06/10/24 10:31 95 16 104/64 06/10/24 09:36 97.8 96 06/10/24 08:00 Room Air* 0 21 Intake/Output Intake and Output 06/10/24 07:00 Intake Total 1400 ml Output Total 2150 ml Balance -750 ml Intake Oral 1400 ml Output Urine Total 2150 ml Exam GEN: Healthy appearing, well-developed, NAD. HEENT: NC/AT; MMM. CV: RRR, no m/r/g. LUNGS: CTAB, no w/r/c. ABD: Soft, NT/ND, NBS, no masses or organomegaly. EXT: skin Warm, well perfused. no rashes. No clubbing, cyanosis, or edema. NEURO: Decreased sensation in lower extremities bilateral, decreased muscle strength in lower extremities, cranial nerves intact. Laboratory Results Laboratory Tests 06/08/24 05:56 Urinalysis Test 06/07/24 18:00 Urine Color Light-yellow (Yellow) Urine Clarity Clear (Clear) Urine pH 5.5 (5.0-9.0) Urine Specific [place] 1.009 (1.001-1.035) Urine Protein Negative (Negative) Urine Ketones Negative (Negative) Urine Blood Negative /uL (Negative) Urine Nitrite Negative (Negative) Urine Bilirubin Negative (Negative) Urine Urobilinogen Normal mg/dL (Negative) Urine Leukocyte Esterase Negative /uL (Negative) Urine RBC 1 /hpf (0 - 4) Urine Microscopic WBC 1 /HPF (0-5) Urine Squamous Epithelial Cells Few /hpf (<5) Urine Bacteria None seen /hpf (None Seen) Urine Glucose Normal mg/dL (Normal) Labs and/or images reviewed: Labs reviewed by me, Image(s) reviewed by me Assessment/Plan Assessment/Plan Update 06/10- covering today for primary (Tanisha SPRING). patient remains at stable for discharge for MS exacerbation. Continuing treatment with steroids. Acute body pain, paraplegia, due to multiple sclerosis exacerbation and/or T ransverse myelitis Mitral valve prolapse - continue discharge plan. see dc summary 06/09/24 - iv steroids per neurology - maintenance fluids - P.r.n. baclofen for muscle spasms - DVT prophylaxis Lovenox - Ativan for anxiety - Protonix for GI prophylaxis Plan discussed with: Other Date of Service: Jun 10, 2024 Billing Provider: LEX NAVA MD Common Visit Codes: [id number] INP/OBS CARE(MOD) LEX NAVA MD Jun 10, 2024 17:00
== END 2024-06-10 11:30 | disposition short-term general hospital (02) | DRG 43 ==
LOC: ER 16:22 → EDBD 16:22 → OVERFLOW 22:39 → EAST 23:59
PROVIDERS: ADMIT Internal Medicine; ATTEND Internal Medicine
DX: G35 Multiple sclerosis (principal); E87.1 Hypo-osmolality and hyponatremia; F41.9 Anxiety disorder, unspecified; G82.20 Paraplegia, unspecified; I34.1 Nonrheumatic mitral (valve) prolapse; Z82.0 Family history of epilepsy and other diseases of the nervous system; Z82.49 Family history of ischemic heart disease and other diseases of the circulatory system
CPT/HCPCS: 36415; 70553; 71045; 72142; 72157; 80048; 80053; 80307; 81001; 82306; 85025; 85610; 85652; 85730; 86141; 96361; 96374; 96375; 96376; G0378; J2405

== ENCOUNTER 2024-07-02 19:42 | Emergency (ER) | payer MEDICAID, OTHER ==
[~2024-07-02] VITALS: Ht 165.1 cm; Wt 81.8 kg
[~2024-07-02 19:42] MED LIST changes: +BACL10TA PO; +LORA-1121 PO; +PREG50CA PO
--- NOTE | 2024-07-02 19:58 | ED.PDOC ---
HPI Comments 43-year-old female with PMHx anxiety brought in by EMS presents with a chief complaint of palpitations x 1 hour prior to arrival with associated nausea. Patient states that she was at rest, eating dinner, when she had sudden onset of chest pain and palpitations. Per EMS, patients BPM was in 147-150s. Patient was given 200mL of NS and 4mg Zofran IV. Patient denies any cardiac history in the past. Time Seen by MD: 19:50 Reviewed Notes: Medications, Allergies Allergies: Coded Allergies: NO KNOWN ALLERGIES (Unverified , 07/02/24) Home Meds Active Scripts Apixaban Base (Eliquis Starter Pack) 5 Mg Tab, 5 MG PO BID for 90 Days, #180 TAB Prov:KENROY RILEY MD 07/03/24 Apixaban Base (ELIQUIS) 5 Mg Tab, 5 MG PO BID for 90 Days, #180 TAB 3 Refills Prov:KENROY RILEY MD 07/03/24 Information Source: Patient, Emergency Med Personnel Mode of Arrival: EMS Severity: Moderate Timing: Minutes Duration: Since onset Prehospital treatment: 12 Lead EKG, IVF (200mL NS), Treatment (4mg Zofran IV) Location: Substernal Radiation: No Radiation Quality: Heavy Onset: At Rest Cardiac Risk Factors: None PE Risk Factors: None History of: None Associated Signs and Symptoms: Palpitations Past Medical History PAST MEDICAL HISTORY: Anxiety Surgical History: Denies all surgeries SCARFER History: Denies all SCARFER Hx Family History Family History: Reviewed,noncontributory to illness Social History Smoker: Non-Smoker Alcohol: Denies ETOH Use Drugs: Denies Drug Use Lives In: Home Constitutional: denies: chills, diaphoresis, fatigue, fever, malaise, sweats, weakness, others EENTM: denies: blurred vision, double vision, ear bleeding, ear discharge, ear drainage, ear pain, ear ringing, eye pain, eye redness, hearing loss, mouth p ain, mouth swelling, nasal discharge, nose bleeding, nose congestion, nose pain, photophobia, tearing, throat pain, throat swelling, voice changes, others Respiratory: denies: cough, hemoptysis, orthopnea, SOB at rest, shortness of br eath, SOB with excertion, stridor, wheezing, others Cardiovascular: reports: palpitations; denies: chest pain, dizzy spells, diaphoresis, Dyspnea on exertion, edema, irregular heart beat, left arm pain, lightheadedness, PND, syncope, others Gastrointestinal: denies: abdomen distended, abdominal pain, blood streaked cori wels, constipated, diarrhea, dysphagia, difficulty swallowing, hematemesis, melena, nausea, poor appetite, poor fluid intake, rectal bleeding, rectal pain, vomiting, others Genitourinary: denies: abnormal vagina bleeding, burning, dyspareunia, dysuria, flank pain, frequency, hematuria, incontinence, pain, , vagina discharge, urgency, others Neurological: denies: dizziness, fainting, headache, left sided numbness, left sided weakness, numbness, paresthesia, pre-existing deficit, right sided numbness, right sided weakness, seizure, speech problems, tingling, tremors, weakness, others Musculoskeletal: denies: back pain, gout, joint pain, joint swelling, muscle pain, muscle stiffness, neck pain, others Integumetry: denies: bruises, change in color, change in hair/nails, dryness, laceration, lesions, lumps, rash, wounds, others Allergic/Immunocompromised: denies: Difficulty Healing, Frequent Infections, Hives, Itching, others Hematologic/Lymphatic: denies: anemia, blood clots, easy bleeding, easy bruis ing, swollen glands, others Endocrine: denies: excessive hunger, excessive sweating, excessive thirst, exc essive urination, flushing, intolerance to cold, intolerance to heat, unexplained weight gain, unexplained weight loss, others Psychiatric: denies: anxiety, bipolar disorder, depression, hopeless, panic disorder, schizophrenia, sleepless, suicidal, others All Other Systems: Reviewed and Negative Physical Exam General Appearance: No Apparent Distress, Normal HEENT: Normal ENT Inspection, Pharynx Normal, TMs Normal Neck: Full Range of Motion, Non-Tender, Normal, Normal Inspection Respiratory: Chest Non-Tender, Lungs Clear, No Accessory Muscle Use, No Respiratory Distress, Normal Breath Sounds Cardiovascular: No Edema, No JVD, No Murmur, No Gallop, Normal Peripheral Pulses, Regular Rate/Rhythm Breast Exam: Deferred Gastrointestinal: No Organomegaly, Non Tender, No Pulsatile Mass, Normal Bowel Sounds, Soft Genitalia: Deferred Pelvic: Deferred Rectal: Deferred Extremities: No calf tenderness, Normal capillary refill, Normal inspection, Normal range of motion, Non-tender, No pedal edema Musculoskeletal : Apperance: Normal Neurologic: Alert, boilermaker ship II-XII nml as Tested, No Motor Deficits, Normal Affect, Normal Mood, No Sensory Deficits Cerebellar Function: Normal Reflexes: Normal Skin: Dry, Normal Color, Warm Lymphatic: No Adenopathy Was a procedure done? Was a procedure done?: No CP Differential Dx Differential Diagnosis: A-fib, A-Flutter, Electrolyte Disorder, Heart Failure, Hyperventilation, Hypoxia, PSVT, Pulmonary Embolus, V-Fib, V-Tach, Other X-Ray, Labs, Meds, VS Vital Signs Date Time Temp Pulse Resp B/P (MAP) Pulse Ox O2 Delivery O2 Flow Rate FiO2 07/02/24 21:52 110 07/02/24 20:34 115 07/02/24 20:05 98.2 115 20 135/86 (102) 98 98.2 07/02/24 19:42 117 Lab Test 07/02/24 20:05 Range/Units White Blood Count 7.0 4.4-10.8 10^3/uL Red Blood Count 4.36 4.0-5.20 10^6/uL Hemoglobin 12.2 12.2-16.2 g/dL Hematocrit 36.1 36.0-46.0 % Mean Corpuscular Volume 82.9 80.0-100.0 fL Mean Corpuscular Hemoglobin 27.9 L 28.0-32.0 pg Mean Corpuscular Hemoglobin Concent 33.7 32.0-36.0 g/dL Red Cell Distribution Width 15.5 H 11.8-14.3 % Platelet Count 554 H 140-450 10^3/uL Mean Platelet Volume 7.7 6.9-10.8 fL Neutrophils (%) (Auto) 54.3 37.0-80.0 % Lymphocytes (%) (Auto) 26.0 10.0-50.0 % Monocytes (%) (Auto) 7.6 0.0-12.0 % Eosinophils (%) (Auto) 10.7 H 0.0-7.0 % Basophils (%) (Auto) 1.4 0.0-2.0 % Neutrophils # (Auto) 3.8 1.6-8.6 10 ^3/uL Lymphocytes # (Auto) 1.8 0.4-5.4 10 ^3/uL Monocytes # (Auto) 0.5 0-1.3 10 ^3/uL Eosinophils # (Auto) 0.7 0-0.8 10 ^3/uL Basophils # (Auto) 0.1 0-0.2 10 ^3/uL Nucleated Red Blood Cells 0.1 % Prothrombin Time Pending Prothrombin Time INR Pending Activated Partial Thromboplast Time Pending D-Dimer, Quantitative 1.42 H 0.0-0.49 mg/L FEU Sodium Level 138 136-145 mmol/L Potassium Level 3.9 3.5-5.1 mmol/L Chloride Level 107 98-107 mmol/L Carbon Dioxide Level 24 20-31 mmol/L Anion Gap 7 5-15 Blood Urea Nitrogen 9 9-23 mg/dL Creatinine 0.56 0.550-1.02 mg/dL Glomerular Filtration Rate Calc 115 >90 mL/min BUN/Creatinine Ratio 16.1 10.0-20.0 Serum Glucose 132 H 74-106 mg/dL Calcium Level 8.8 8.7-10.4 mg/dL Magnesium Level 1.8 1.6-2.6 mg/dL Total Bilirubin 0.4 0.2-1.0 mg/dL Aspartate Amino Transferase (AST) 12 L 13-40 U/L Alanine Aminotransferase (ALT) 15 7-40 U/L Alkaline Phosphatase 69 46-116 U/L Total Protein 6.0 5.7-8.2 g/dL Albumin 3.8 3.2-4.8 g/dL Thyroid Stimulating Hormone (TSH) 2.17 0.55-4.78 uIU/mL Free Thyroxine (T4) Calculated Pending Current Medications Medications (Trade) Dose Ordered Sig/Josiah Route Start Time Stop Time Status Last Admin Sodium Chloride 500 ml @ 500 mls/hr Q1H ONCE IVB 07/02/24 20:00 07/02/24 20:59 DC 07/02/24 20:35 Time of 1ST Reevaluation: 20:20 Reevaluation 1ST: Unchanged Patient Education/Counseling: Diagnosis, Treatment, Prognosis Family Education/Counseling: No Family Present Departure 1 Departure Time of Disposition: 00:33 Impression: Primary Impression: Multiple sclerosis Additional Impression: Right pulmonary embolus Disposition: 01 HOME / SELF CARE / HOMELESS Condition: Stable e-Prescriptions Apixaban Base (Eliquis Starter Pack) 5 Mg Tab 5 MG PO BID for 90 Days, #180 TAB Prov: KENROY RILEY MD 07/03/24 Apixaban Base (ELIQUIS) 5 Mg Tab 5 MG PO BID for 90 Days, #180 TAB 3 Refills Prov: KENROY RILEY MD 07/03/24 Discharged With: Self Critical Care Note Critical Care Time?: No Stability Stability form required: No Heart Score Heart Score: Heart Score Response (Comments) Value History Slightly Suspicious 0 EKG Normal 0 Age 45-64 1 Risk Factors 1 or 2 risk factors 1 Troponin Normal limit 0 Total 2 I personally scribed for KENROY RILEY MD ([email or web address]) on 07/02/24 at 19:57. Electronically submitted by Duong Sales ([email or web address]). KENROY RILEY MD Jul 02, 2024 19:57
[2024-07-02] MEDS: LORazepam 2MG/ML-1ML VIAL IV ONE (20:00)
[2024-07-02 20:24] LABS: Basophils # (auto) 0.1 10 ^3/uL (0-0.2); Basophils % (auto) 1.4 % (0.0-2.0); Eosinophils # (auto) 0.7 10 ^3/uL (0-0.8); Eosinophils % (auto) 10.7 % (0.0-7.0); Hematocrit 36.1 % (36.0-46.0); Hemoglobin 12.2 g/dL (12.2-16.2); Lymphocytes # (auto) 1.8 10 ^3/uL (0.4-5.4); Mean Corpuscular Hemoglobin 27.9 pg (28.0-32.0); Mean Corpuscular Hgb Conc. 33.7 g/dL (32.0-36.0); Mean Corpuscular Volume 82.9 fL (80.0-100.0); Monocytes # (auto) 0.5 10 ^3/uL (0-1.3); Monocytes % (auto) 7.6 % (0.0-12.0); Neutrophils # (auto) 3.8 10 ^3/uL (1.6-8.6); Neutrophils % (auto) 54.3 % (37.0-80.0); Nucleated Red Blood Cells % 0.1 %; Platelet Count (auto) 554 10^3/uL (140-450); Red Blood Cells 4.36 10^6/uL (4.0-5.20); Red Cell Distribution Width 15.5 % (11.8-14.3)
[2024-07-02 20:30] VITALS: PULSE 113; RESP 14; O2SAT 99
[2024-07-02] MEDS: SODIUM CHLORIDE 0.9% 500 ML IVB ONE (20:35)
[2024-07-02 20:37] LABS: Alanine Aminotransferase 15 U/L (7-40); Alkaline Phosphatase 69 U/L (46-116); Anion Gap 7 (5-15); BUN/Creatinine Ratio 16.1 (10.0-20.0); Calcium 8.8 mg/dL (8.7-10.4); Carbon Dioxide 24 mmol/L (20-31); Magnesium 1.8 mg/dL (1.6-2.6); Potassium 3.9 mmol/L (3.5-5.1); Sodium 138 mmol/L (136-145)
[2024-07-02 20:38] LABS: Albumin 3.8 g/dL (3.2-4.8); Aspartate Aminotransferase 12 U/L (13-40); Bilirubin, Total 0.4 mg/dL (0.2-1.0); Blood Urea Nitrogen 9 mg/dL (9-23); Chloride 107 mmol/L (98-107); Glucose 132 mg/dL (74-106)
[2024-07-02] MEDS: IOHEXOL 350 MG/ML 100ML IJ ONE (22:19)
--- NOTE | 2024-07-02 23:17 | DVH ---
CTA Chest with intravenous contrast INDICATION: SOB r/o PE COMPARISON: None TECHNIQUE: Multidetector spiral CTA of the chest was performed of the chest with intravenous contrast . PULMONARY ANGIOGRAPHY PROTOCOL was utilized using a bolus-tracking technique centered on the main p ulmonary artery. Axial, coronal and sagittal multiplanar and MIP reformats were performed. Radiation Dose : 1. Chest: CTDI volume is 30.26 mGy. Dose-length product is 62.35 mGy*cm The dose indicators for CT are the volume Computed Tomography (CT) Dose Index (CTDIvol) and the Dose Length Product (DLP), and are measured in units of mGy and mGy-cm, respectively. These indicators are not patient dose, but values generated from the CT scanner acquisition factors. The report includes radiation exposure data for exposures received during this examination. Findings: Pulmonary artery: A single small filling defect is noted within the subsegmental branch of the right pulmonary artery s erving the posterior right lower lobe. Lower neck: Normal thyroid. Lungs: Small right pleural effusion with adjacent atelectasis within the posterior right lower lobe. No evidence of focal consolidation or pneumothorax. Heart/Vascular Structures: Normal heart size. No pericardial effusion. Lymph Nodes: No adenopathy Pleura: No pleural effusion or significant pneumothorax. Musculoskeletal: No acute osseous abnormality. Soft tissues: Normal. Upper abdomen: Limited portions of the upper abdomen are unremarkable. IMPRESSION: 1. Small segmental pulmonary embolus within the posterior right lower lobe branch of the pulmonary ar gabriele. 2. Small right pleural effusion with adjacent atelectasis. 3. These findings were discussed with and acknowledged by Dr. Shaffer of the emergency department at 1 1:11 p.m. On 07/02/2024.
[2024-07-03] MEDS ORDERED: APIX5TAB4 PO ×2 (00:32→10:07)
[2024-07-03] MEDS ORDERED: APIX5TAB PO ×2 (00:32→10:07)
[2024-07-03 00:42] LABS: INR 1.06 (0.9-1.15); Partial Thromboplastin Time 27.1 SEC (24.5-34.5); Prothrombin Time 11.2 sec (9.3-11.8)
[2024-07-03] MEDS: APIXABAN 5 MG TAB PO ONE (01:21)
[2024-07-03 03:00] VITALS: BP 118/92; PULSE 103; RESP 16; TEMP 98.3; O2SAT 97
--- NOTE | 2024-07-03 06:21 | ECG ---
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
[2024-07-03] MEDS ORDERED: APIXABAN 5 MG TAB PO SCH ×2 (10:00)
--- NOTE | 2024-07-04 12:04 | ECG ---
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
--- NOTE | 2024-07-04 12:04 | ECG ---
[facility] Test Date: 2024-07-02 Test Time: 19:42:58 Pat Name: RICHARD BOATENG Department: ED Room: Gender: F [employer]: amanda : 1980 Requested By: KENROY RILEY Order Number: [id number] Reading MD: Arnel Kent Measurements Intervals [place] Rate: 117 P: 73 NM: 155 QRS: 75 QRSD: 82 T: 27 QT: 327 QTc: 457 Interpretive Statements Sinus tachycardia Low voltage, precordial leads Borderline T abnormalities, anterior leads Electronically Signed On 07-06-2024 14:14:14 PDT by Arnel Kent Please click the below link to view image of tracing.
== END 2024-07-03 03:23 | disposition home or self-care (01) ==
LOC: ER 19:42 → MERGE 19:42 → EDBD 19:42 → ER 07-03 03:23
DX: G35 Multiple sclerosis (principal); I26.99 Other pulmonary embolism without acute cor pulmonale; F41.9 Anxiety disorder, unspecified
CPT/HCPCS: 36415; 71275; 80053; 83735; 84439; 84443; 85025; 85379; 85610; 85730; 93005; 96361; 96374; 99285; J2060; J7040; Q9967